=== PATIENT | male | born 1990 | race Caucasian/White ===

== ENCOUNTER → 2016-08-29 | Outpatient (CLI) | payer BC ==
--- NOTE | 2016-08-31 14:18 | MR ---
EXAMINATION TYPE: MR hip RT wo con DATE OF EXAM: 08/29/2016 COMPARISON: 03/17/2015, outside MRI right hip. HISTORY: 26-year-old male Right hip pain, tendon surgery in May 2015. TECHNIQUE: Multiplanar, multisequence images of the right hip were obtained without IV contrast. FINDINGS: Redemonstrated are findings of both hips related to cam-type femoral acetabular impingement syndrome with osseous excrescences at the superior femoral head and junction and larger located anteriorly. While the previously seen paravertebral cyst has decreased in size, the labrum along the anterior sup erior quadrant remains diffusely degenerative and torn. Labral tear extends back to at least the 1:00 position posterior superior quadrant. There is redemonstrated moderate loss of articular cartilage along the anterior weightbearing aspect of the joint and focal 7 mm AP by 5 mm wide severe chondral loss along the peripheral weightbearing a spect, coronal image 9 and sagittal image 14. Symmetric small hip joint effusions. On the left, redemonstrated tear of the acetabular labrum along the anterior superior quadrant. There may extend back into the posterior-superior quadrant with the larger 3 to 4 mm 1:00 paralabral cyst. SI joints are symmetric and intact. No evidence for hip fracture or AVN. No suspicious bone marrow re placement or bone marrow edema. The rectus femoris and hamstring origins as well as the iliopsoas and gluteal insertions appear intac t. There is symmetric course, caliber, signal intensity of the sciatic nerves. Large sacral Tarlov cysts redemonstrated causing chronic bony remodeling of the sacral spinal canal. No abnormal fluid collection in the pelvis. IMPRESSION: 1. Bony changes at both hips compatible with CAM-type ARUNA. 2. Markedly degenerated and torn labrum along the anterior superior quadrant extending back to the po sterior superior quadrant. 3.While the previous right-sided paralabral cyst has decreased in size, there continues to be moderat e cartilage loss along the anterior weightbearing aspect of the joint and new 7 x 5 mm focal area of more severe cartilage loss along the peripheral weightbearing aspect of the joint. 4. Redemonstrated left-sided acetabular labral tear with a 3 to 4 mm paralabral cyst at the 1:00 posi tion, increased in size. 5. Incidental very large sacral Tarlov cysts again noted expanding the sacral spinal canal.
== END | disposition home or self-care (01) ==
LOC: RADMRIMAIN 07:00
PROVIDERS: ATTEND Family Medicine Sports Medicine
DX: S73.191A Other sprain of right hip, initial encounter (principal)